=== PATIENT | female | born 1970 | race African-American/Black ===

== ENCOUNTER 2017-11-12 12:21 | Emergency (ER) | payer OTHER ==
[2017-11-12 12:39] VITALS: TEMP 99.1; BMI 31.9
[2017-11-12] MEDS ORDERED: SODIUM CHLORIDE 1,000 ML IV ONE (13:27)
--- NOTE | 2017-11-12 13:28 | PDOC ---
History of Present Illness - General Chief Complaint: Palpitations Stated Complaint: PALPITATIONS, DIZZINESS Time Seen by Provider: 11/12/17 12:42 History Source: Patient Exam Limitations: No Limitations - History of Present Illness Initial Comments: The patient is a 47-year-old female, with a significant past medical history of HTN and diabetes, who presents to the ED with dental pain and dizziness s/p tooth extraction on Thursday11/03/17. The patient states that she visited her dentist office because she noted she had a loose tooth. . She complained of dizziness after the procedure and refused to come back to the office to continue the procedure. Since then the patient has been experiencing dental pain which has been making it difficult for her to eat solid food and sleep. She has been drinking water and taking Aleve for her symptoms. She presents to the ED today for dizziness. As per niece, the patient was experiencing mental status changes this morning, stating that she did not know where she was. Patient also reports having a subjective fever last night. The patients PCP is located at [address] [place] [address]. The patient denies any cough, chest pain or shortness of breath. Denies any nausea, vomiting, diarrhea, or abdominal pain. Denies any headache or back pain. Denies any urinary symptoms. Past History - Past Medical History Allergies/Adverse Reactions: Allergies Allergy/AdvReac Type Severity Reaction Status Date / Time No Known Allergies Allergy Verified 11/12/17 12:35 Home Medications: Ambulatory Orders Metformin HCl [Metformin HCl ER] 1,000 mg PO DAILY 11/12/17 Nitrofurantoin Monohyd/M-Cryst [Macrobid -] 100 mg PO BID #10 capsule 11/12/17 Oxycodone HCl/Acetaminophen [Percocet 5-325 mg Tablet -] 1 combo PO Q6H PRN #8 tablet MDD 4 11/12/17 COPD: No Diabetes: Yes HTN: Yes Hypercholesterolemia: Yes - Suicide/Smoking/Psychosocial Hx Smoking History: Never smoked Hx Alcohol Use: No Drug/Substance Use Hx: No Substance Use Type: None Review of Systems - Review of Systems Able to Perform ROS?: Yes Comments:: 11/13/17 09:46 CONSTITUTIONAL: Reported: subjective Fever, Loss of appetite No reported: Chills, Diaphoresis, Generalized Weakness, Malaise, Loss of Appetite HEENT: Reported: Dental Pain No reported: Rhinorrhea, Nasal Congestion, Throat Pain, Throat Swelling, Difficulty Swallowing, Mouth Swelling, Ear Pain, Eye Pain, Visual Changes CARDIOVASCULAR: No reported: Chest Pain, Syncope, Palpitations, Irregular Heart Rate, Peripheral Edema RESPIRATORY: No reported: Cough, Shortness of Breath, SOB with Exertion, Orthopnea, Wheezing , Stridor, Hemoptysis GASTROINTESTINAL: No reported: Abdominal pain, Abdominal Distension, Nausea, Vomiting, Diarrhea, Constipation, Melena, Hematochezia GENITOURINARY: No reported: Dysuria, Frequency, Urgency, Hesitancy, Flank Pain, Genital Pain MUSCULOSKELETAL: No reported: Myalgia, Arthralgia, Joint Swelling, Back pain, Neck Pain SKIN: No reported: Rash, Itching, Pallor HEMEATOLOGIC/IMMUNOLOGIC: No reported: Easy Bleeding, Easy Bruising, Lymphadenopathy, Frequent infections ENDOCRINE: No reported: Unexplained Weight Gain, Unexplained Weight Loss, Heat Intolerance , Cold Intolerance NEUROLOGIC: Reported: Dizziness & Lightheadedness, No reported: Headache, Focal Weakness, Paresthesias, Vertigo, Unsteady Gait, Seizure, Mental Status Changes, Incontinence PSYCHIATRIC: No reported: Anxiety, Depression *Physical Exam - Vital Signs Last Vital Signs Temp Pulse Resp BP Pulse Ox 99.1 F 93 H 20 132/83 97 11/12/17 12:35 11/12/17 17:41 11/12/17 17:10 11/12/17 17:10 11/12/17 17:10 - Physical Exam Comments: 11/13/17 09:47 GENERAL: The patient is awake, alert, and fully oriented, Nontoxic - in no acute distress. HEAD: Normocephalic, atraumatic. EYES: extraocular movements intact, sclera anicteric, conjunctiva clear. ENT: Normal voice, dry mucous membranes, false teeth with cement in place on lower jaw, no edema/induration/focal tenderness. NECK: Normal range of motion, supple LUNGS: Breath sounds equal, clear to auscultation bilaterally. No wheezes, no rhonchi, no rales. HEART: tachycardic, without murmur, rub or gallop. ABDOMEN: Soft, nontender, No guarding, no rebound. No CVA tenderness EXTREMITIES: Normal range of motion, no edema. NEUROLOGICAL: No facial assymetry, Normal speech, moving all 4 extremities spontaneously and symmetrically PSYCH: Normal mood, normal affect. SKIN: Warm, Dry, normal turgor Heart Score/ECG Review - ECG Impressions Comment:: 11/12/17 13:45 Twelve-lead EKG was performed and reviewed by me. There is normal sinus rhythm with a rate of 114 The axis is normal. The intervals are normal. There is normal R wave progression nonspecific tw changes Impression: sinus tachycardia ED Treatment Course - LABORATORY CBC & Chemistry Diagram: 11/12/17 13:27 11/12/17 14:00 - ADDITIONAL ORDERS Additional order review: 11/12/17 13:27 RBC 4.82 MCV 84.7 MCHC 33.1 RDW 13.7 MPV 7.3 L Neutrophils % 62.4 Lymphocytes % 30.6 D Monocytes % 5.0 Eosinophils % 1.3 D Basophils % 0.7 - Medications Given in the ED: ED Medications Discontinued Medications Generic Name Dose Route Start Last Admin Trade Name Freq PRN Reason Stop Dose Admin Sodium Chloride 1,000 mls @ 1,000 mls/hr 11/12/17 13:27 11/12/17 14:05 Normal Saline - IV 11/12/17 14:26 1,000 mls/hr .Q1H ONE Administration Oxycodone/Acetaminophen 1 combo 11/12/17 13:42 11/12/17 14:05 Percocet 5/325 - PO 11/12/17 13:43 1 combo ONCE ONE Administration Medical Decision Making - Medical Decision Making 11/12/17 13:28 47y F hx of htn, hl, dm, presents with complaint of palpitaitons, lighheadedness since eysterday. pt had a recent tooth extraction at the dentist has not been eating very much due to pain but has been drinking water, no associated chest pain, shortness of breath, headache, abd pain, back pain, leg swelling, increased swelling of the jaw. pt taking otc meds at home. suspect dehdyration as a cause of her palptiations/tachycardia as pt has dry mmm likely due to pain from her extraction no signs of swelling in her mouth lenka ck basic labs will hydrate with fluids perccoet for pain will reassess 11/12/17 16:16 labs reviewed UA suggestive of UTI pt feeling better, still very mild pain in her jaw - will give her rx for some percocet will repeat the pts vitals, if neg will dc with pmd / dental fu return precautiosn were dsicsused I discussed the physical exam findings, ancillary test results and final diagnoses with the patient. I answered all of the patient's questions. The patient was satisfied with the care received and felt comfortable with the discharge plan and treatment plan. The patient will call their primary care physician within 24 hours to arrange follow-up and will return to the Emergency Department with any new, persistent or worsening symptoms. A portion of this note was documented by scribe services under my direction. I have reviewed the details of the note, within reason, and agree with the documentation with the following case summary and management plan written by me 11/12/17 16:52 pts repeat vitals show HR of 100, substantially improved from arrival lenka give another 500cc and dc with pmd fu *DC/Admit/Observation/Transfer Diagnosis at time of Disposition: Dehydration, Tooth pain UTI (urinary tract infection) Qualifiers: Urinary tract infection type: site unspecified Hematuria presence: with hematuria Qualified Code(s): N39.0 - Urinary tract infection, site not specified - Discharge Dispostion Disposition: HOME Condition at time of disposition: Improved Decision to Admit order: Yes - Prescriptions Prescriptions: Nitrofurantoin Monohyd/M-Cryst [Macrobid -] 100 mg PO BID #10 capsule Oxycodone HCl/Acetaminophen [Percocet 5-325 mg Tablet -] 1 combo PO Q6H PRN #8 tablet MDD 4 PRN Reason: Pain - Referrals Referrals: Jose Lala MD [Staff Physician] - - Patient Instructions Printed Discharge Instructions: DI for Dehydration -- Adult Additional Instructions: Return to the emergency department immediately with ANY new, persistent or worsening symptoms including headache, persistent vertigo/dizziness, chest pain palpitations, numenbess/tingling/weakness, inability to tolerate oral intake or any other concerns. Make sure to stay well hydrated. Take the antibiotics as prescribed. Take the percocet as needed for your toothpain, make sure you follow up with your dentist within 3-4 days. You MUST call and follow up with your primary care doctor within 3 days for further evaluation of your symptoms. Your emergency department visit is not complete without a followup with your doctor for reevaluation. Results were discussed with you. Please make sure your doctor reviews the results of your emergency evaluation - Post Discharge Activity Forms/Work/School Notes: Back to Work
[2017-11-12 14:15] LABS: BASO % 0.7 % (0-2.0); EOS % 1.3 % (0-4.5); HEMATOCRIT 40.8 % (32.4-45.2); HEMOGLOBIN 13.5 GM/dL (10.7-15.3); LYMPH % 30.6 % (8-40); MCHC 33.1 g/dl (32.0-36.0); MEAN CELL VOLUME 84.7 fl (80-96); MEAN PLT VOLUME 7.3 fl (7.5-11.1); NEUT % 62.4 % (42.8-82.8); PLATELET COUNT 370 K/MM3 (134-434); RBC 4.82 M/mm3 (3.60-5.2); RDW 13.7 % (11.6-15.6); WHITE BLOOD COUNT 8.7 K/mm3 (4.0-10.0)
[2017-11-12 14:39] LABS: ALBUMIN 3.2 g/dl (3.4-5.0); ALK PHOS 86 U/L (45-117); ANION GAP 8 (8-16); BILIRUBIN,TOTAL 0.3 mg/dL (0.2-1.0); BLOOD UREA NITROGEN 9 mg/dL (7-18); CALCIUM 8.4 mg/dL (8.5-10.1); CHLORIDE 106 mmol/L (98-107); CO2 26 mmol/L (21-32); CREATININE 0.7 mg/dL (0.55-1.02); GLUCOSE,RANDOM 146 mg/dL (74-106); POTASSIUM 3.9 mmol/L (3.5-5.1); SGOT/AST 19 U/L (15-37); SGPT/ALT 22 U/L (12-78); SODIUM 140 mmol/L (136-145); TOT PROT 7.6 g/dl (6.4-8.2)
[2017-11-12 15:36] LABS: HCG,QUALITATIVE URINE NEGATIVE
[2017-11-12 15:40] LABS: URINE APPEARANCE SLCLOUDY; URINE BILIRUBIN NEGATIVE (<2.0 mg/dL); URINE COLOR YELLOW; URINE GLUCOSE (UA) 3+ (NEGATIVE); URINE KETONE TRACE (NEGATIVE); URINE NITRITE NEGATIVE (NEGATIVE); URINE PROTEIN NEGATIVE (NEGATIVE); URINE UROBILINOGEN NEGATIVE mg/dL (0.2-1.0)
[2017-11-12 15:42] LABS: URINE LEUK ESTERASE 2+ (NEGATIVE)
[2017-11-12 15:44] LABS: EPI CELLS FEW /HPF (FEW); URINE MUCUS RARE
--- NOTE | 2017-11-12 16:28 | EKG ---
Test Reason : Blood Pressure : / mmHG Vent. Rate : 114 BPM Atrial Rate : 114 BPM P-R Int : 122 ms QRS Dur : 068 ms QT Int : 310 ms P-R-T Axes : 048 019 -09 degrees QTc Int : 427 ms SINUS TACHYCARDIA POSSIBLE LEFT ATRIAL ENLARGEMENT CANNOT RULE OUT ANTERIOR INFARCT , AGE UNDETERMINED ABNORMAL ECG NO PREVIOUS ECGS AVAILABLE Confirmed by WESLEY PRESSLEY MD ([id number]) on 11/12/2017 4:27:56 PM Referred By: Confirmed By:WESLEY PRESSLEY MD
[2017-11-12 17:11] VITALS: BP 132/83
[2017-11-12 17:42] VITALS: PULSE 93
== END 2017-11-12 17:42 | disposition home or self-care (01) ==
LOC: JER 12:21
PROC: 3E0337Z Introduction of Electrolytic and Water Balance Substance into Peripheral Vein, Percutaneous Approach (ICD-10-PCS; principal; 2017-11-12)
DX: N39.0 Urinary tract infection, site not specified (principal); E86.0 Dehydration; K08.89 Other specified disorders of teeth and supporting structures; Z98.818 Other dental procedure status; I10 Essential (primary) hypertension; E78.00 Pure hypercholesterolemia, unspecified; E11.9 Type 2 diabetes mellitus without complications; Z79.84 Long term (current) use of oral hypoglycemic drugs
CPT/HCPCS: 36415; 80053; 81003; 81015; 84703; 85025; 93005; 93010; 99285-25; J7030

== ENCOUNTER 2019-01-07 11:01 | Emergency (ER) | payer OTHER ==
[2019-01-07 11:18] VITALS: BP 157/91; PULSE 102; TEMP 98; BMI 30.9
--- NOTE | 2019-01-07 12:21 | PDOC ---
History of Present Illness - General Chief Complaint: Rash Stated Complaint: ITCHY SKIN LESION Time Seen by Provider: 01/07/19 11:32 History Source: Patient Past History - Past Medical History Allergies/Adverse Reactions: Allergies Allergy/AdvReac Type Severity Reaction Status Date / Time No Known Allergies Allergy Verified 01/07/19 11:16 Home Medications: Ambulatory Orders Nitrofurantoin Monohyd/M-Cryst [Macrobid -] 100 mg PO BID #10 capsule 11/12/17 Oxycodone HCl/Acetaminophen [Percocet 5-325 mg Tablet -] 1 combo PO Q6H PRN #8 tablet MDD 4 11/12/17 metFORMIN HCL [Metformin HCl ER] 1,000 mg PO DAILY 11/12/17 Sulfamethoxazole/Trimethoprim [Bactrim Ds Tablet] 1 each PO BID #14 tablet 01/07 COPD: No Diabetes: Yes HTN: Yes Hypercholesterolemia: Yes - Immunization History Immunization Up to Date: No - Suicide/Smoking/Psychosocial Hx Smoking History: Never smoked Hx Alcohol Use: No Drug/Substance Use Hx: No Substance Use Type: None *Physical Exam - Vital Signs Last Vital Signs Temp Pulse Resp BP Pulse Ox 98.0 F 102 H 18 157/91 98 01/07/19 11:17 01/07/19 11:17 01/07/19 11:17 01/07/19 11:17 01/07/19 11:17 Medical Decision Making - Medical Decision Making 01/07/19 12:37 niece's phone number [phone] 01/07/19 12:[address] Guerrero 01/07/19 12:43 fs 160 *DC/Admit/Observation/Transfer Diagnosis at time of Disposition: Skin pustule - Discharge Dispostion Disposition: HOME Condition at time of disposition: Stable Decision to Admit order: No - Referrals Referrals: Christopher Guerrero MD [Staff Physician] - - Patient Instructions Additional Instructions: Clean with soap and water 2-3 times daily, apply bacitracin Have her reevaluated if redness, pus, fever or getting worse Followup with the doctor listed below You can call me if you haven't heard from me by 2 PM or miss my call at - Post Discharge Activity
== END 2019-01-07 12:48 | disposition home or self-care (01) ==
LOC: JERFT 11:01
DX: L08.9 Local infection of the skin and subcutaneous tissue, unspecified (principal); I10 Essential (primary) hypertension; E78.00 Pure hypercholesterolemia, unspecified; E11.9 Type 2 diabetes mellitus without complications; Z79.84 Long term (current) use of oral hypoglycemic drugs
CPT/HCPCS: 82962; 87070; 87186; 87205; 99282-25